=== PATIENT | female | born 1935 | race American Indian/Alaskan Native ===

== ENCOUNTER 2020-02-27 20:43 | Emergency (ER) | payer SELFPAY ==
--- NOTE | 2020-02-27 20:52 | Emergency Department Report ---
ED CPR HPI - General Chief Complaint: Cardiac Arrest/CPR Stated Complaint: CARDIAC ARREST Time Seen by Provider: 02/27/20 20:43 Source: EMS, RN notes reviewed Mode of arrival: Stretcher Limitations: Altered Mental Status, Physical Limitation - History of Present Illness Initial Comments: Patient is an 84-year-old female presents emergency room with cardiac arrest. Patient brought in by EMS. Report received from EMS. EMS states that the patient was found down by young grandchildren at the house. The patient's last known well time is unknown. The patient's downtime is unknown. The grandchildren then called 911. No bystander CPR was done. EMS states that the intubated the patient with a 7.5 ET tube. Placement was verified with capnography and bilateral breath sounds. EMS states there was no evidence sounds over the epigastrium. EMS states CPR was performed the entire time after initial contact. EMS states they gave 3 rounds of epi. EMS states they gave epi and had spontaneous return of circulation and then the patient went back into cardiac arrest and they gave 2 more epis and then just prior to arrival the patient had return of spontaneous circulation. Upon arrival the patient is Asystole and cardiac arrest and no pulses noted. CPR was reinitiated once the patient was transferred to our [facility]. Complaint: found unresponsive -: unknown Place: home Bystander CPR Performed: No AED Applied by Bystander/Store Cashier: No Shock Advised: No Initial Findings in the Field: unresponsive, no respirations, no pulse ROSC in the Field: Yes Associated Injuries: No Treatments Prior to Arrival: intubation, BMV, chest compressions, epinephrine mgs # (3) ED Review of Systems ROS: Stated complaint: CARDIAC ARREST Other details as noted in HPI Comment: Unobtainable due to pts medical conditions ED Past Medical Hx - Past Medical History Previous Medical History?: Yes Hx Hypertension: Yes - Surgical History Past Surgical History?: No - Family History Family history: no significant - Social History Smoking Status: Unknown if ever smoked Substance Use Type: None ED Physical Exam - General Limitations: Altered Mental Status, Physical Limitation General appearance: other - Head Head exam: Present: atraumatic, normocephalic (Patient intubated) - Eye Eye exam: Present: other (Pupils fixed and dilated) - ENT ENT exam: Present: mucous membranes dry - Neck Neck exam: Present: normal inspection - Respiratory Respiratory exam: Present: other (Patient intubated and bilateral breath sounds noted. Placement verified of ET tube.) - Cardiovascular Cardiovascular Exam: Present: other (No pulse noted) - GI/Abdominal GI/Abdominal exam: Present: soft - Rectal Rectal exam: Present: deferred - Extremities Exam Extremities exam: Present: normal inspection - Skin Skin exam: Present: warm, dry, intact, normal color. Absent: rash ED Course - Reevaluation(s) Reevaluation #1: Patient arrived with EMS. Report received from EMS. Patient is currently asystole and pulseless. Patient is intubated and the tube placement was verified. [place] and CPR was started. 02/27/20 20:33 Reevaluation #2: Resuscitation efforts were terminated due to no signs of life. No cardiac motion noted ultrasound. Patient is asystole. No pulse noted. No respiratory motion noted. Code ran in accordance with ACLS guidelines. See code note. Family support will be given once the family arrives. 02/27/20 22:39 ED Medical Decision Making - Medical Decision Making Patient is an 84-year-old female presents emergency room and a cardiac arrest. Patient had spontaneous return of circulation in route had no signs of life the entire time in the ER. Patient was given multiple medication. Code ran in accordance with ACLS guidelines. See nurses code note. Resuscitation efforts were terminated due to no signs of life. - Differential Diagnosis PE, NC, cardiac arrest, Critical Care Time: Yes Critical care time in (mins) excluding proc time.: 35 Critical care attestation.: If time is entered above; I have spent that time in minutes in the direct care of this critically ill patient, excluding procedure time. Critical Care Time: 35 minutes ED Disposition Clinical Impression: Cardiac arrest Disposition: DC-20 Is pt being admited?: No Does the pt Need Aspirin: No Condition: Undetermined Time of Disposition: 21:25
== END 2020-02-27 22:18 ==
LOC: ED 20:43
DX: I46.9 Cardiac arrest, cause unspecified (principal); I10 Essential (primary) hypertension
CPT/HCPCS: 92950